=== PATIENT | male | born 1990 | race African-American/Black ===

== ENCOUNTER 2016-03-15 13:13 | Emergency (ER) | payer OTHER ==
[~2016-03-15] VITALS: Ht 182.9 cm; Wt 79.5 kg
[2016-03-15 13:22] VITALS: BP 142/85; TEMP 98
[2016-03-15 16:28] VITALS: PULSE 86
== END 2016-03-15 16:30 | disposition home or self-care (01) ==
LOC: COL.ER 13:13
DX: S83.91XA Sprain of unspecified site of right knee, initial encounter (principal); X58.XXXA Exposure to other specified factors, initial encounter; Y92.39 Other specified sports and athletic area as the place of occurrence of the external cause

== ENCOUNTER 2016-10-17 10:44 | Emergency (ER) | payer OTHER ==
[~2016-10-17] VITALS: Ht 182.9 cm; Wt 79.1 kg
[2016-10-17 10:47] VITALS: BP 129/79; PULSE 76; TEMP 98
[2016-10-17] MEDS ORDERED: PREDNISONE20 MG PO (11:11)
== END 2016-10-17 11:19 | disposition home or self-care (01) ==
LOC: COL.ER 10:44
DX: J30.9 Allergic rhinitis, unspecified (principal)

== ENCOUNTER 2016-10-29 14:52 | Emergency (ER) | payer OTHER ==
[~2016-10-29] VITALS: Ht 182.9 cm; Wt 79.5 kg
[~2016-10-29 14:52] MED LIST: PREDNISONE20 MG PO
[2016-10-29 15:04] VITALS: BP 114/71; PULSE 62; TEMP 98.3
== END 2016-10-29 16:00 | disposition home or self-care (01) ==
LOC: COL.ER 14:52
DX: S63.615A Unspecified sprain of left ring finger, initial encounter (principal); W23.0XXA Caught, crushed, jammed, or pinched between moving objects, initial encounter; Y93.67 Activity, basketball; Y92.830 Public park as the place of occurrence of the external cause

== ENCOUNTER 2017-04-09 09:11 | Emergency (ER) | payer OTHER ==
[~2017-04-09] VITALS: Ht 182.9 cm; Wt 80.0 kg
[2017-04-09 09:17] VITALS: BP 171/61; TEMP 96.8
[2017-04-09] MEDS ORDERED: FLEXERIL 1010 MG/TAB PO (09:31)
[2017-04-09] MEDS ORDERED: IBU600 MG PO (09:31)
[2017-04-09] MEDS ORDERED: ULTRAM 50MG TAB50 MG PO (09:31)
[2017-04-09 09:52] VITALS: PULSE 74
== END 2017-04-09 09:53 | disposition home or self-care (01) ==
LOC: COL.ER 09:11
DX: M54.5 Low back pain (principal); M62.830 Muscle spasm of back; X50.0XXA Overexertion from strenuous movement or load, initial encounter
CPT/HCPCS: J1885; J2360

== ENCOUNTER 2017-04-11 09:51 | Emergency (ER) | payer OTHER ==
[~2017-04-11] VITALS: Ht 182.9 cm; Wt 77.3 kg
[~2017-04-11 09:51] MED LIST changes: +FLEXERIL 1010 MG/TAB PO; +IBU600 MG PO; +ULTRAM 50MG TAB50 MG PO
[2017-04-11 09:54] VITALS: BP 134/86; TEMP 98.2
[2017-04-11 10:45] VITALS: PULSE 76
== END 2017-04-11 10:35 | disposition home or self-care (01) ==
LOC: COL.ER 09:51
DX: M54.5 Low back pain (principal); X58.XXXA Exposure to other specified factors, initial encounter

== ENCOUNTER 2017-07-28 08:34 | Emergency (ER) | payer OTHER ==
[~2017-07-28] VITALS: Ht 182.9 cm; Wt 81.8 kg
[~2017-07-28 08:34] MED LIST changes: +ZOFRAN ODT4 MG PO
[2017-07-28 08:36] VITALS: BP 112/88; PULSE 63; TEMP 98.3
[2017-07-28] MEDS ORDERED: DEBROX OT (08:45)
[2017-07-28] MEDS ORDERED: AMOXICILLIN875 MG PO (08:45)
== END 2017-07-28 08:53 | disposition home or self-care (01) ==
LOC: COL.ER 08:34
DX: H66.92 Otitis media, unspecified, left ear (principal)

== ENCOUNTER 2017-08-30 13:59 | Emergency (ER) | payer OTHER ==
[~2017-08-30] VITALS: Ht 182.9 cm; Wt 79.5 kg
[~2017-08-30 13:59] MED LIST changes: +AMOXICILLIN875 MG PO; +DEBROX OT
[2017-08-30 14:01] VITALS: BP 116/76; TEMP 99.3
[2017-08-30 15:43] VITALS: PULSE 62
== END 2017-08-30 15:43 | disposition home or self-care (01) ==
LOC: COL.ER 13:59
DX: S69.91XA Unspecified injury of right wrist, hand and finger(s), initial encounter (principal); W23.0XXA Caught, crushed, jammed, or pinched between moving objects, initial encounter; Y93.67 Activity, basketball; Y92.830 Public park as the place of occurrence of the external cause